=== PATIENT | male | born 1975 | race Caucasian/White ===

== ENCOUNTER 2021-05-16 19:43 | Emergency (ER) | payer OTHER ==
[~2021-05-16] VITALS: Ht 185.4 cm; Wt 74.8 kg
[2021-05-16] MEDS ORDERED: PERMETHRIN60 GM TOP (19:55)
[2021-05-16] MEDS ORDERED: MUPIROCIN1 GM TOP (19:55)
[2021-05-16 20:03] VITALS: BP 123/54
== END 2021-05-16 20:04 | disposition home or self-care (01) ==
LOC: M.ERS 19:43
DX: B86 Scabies (principal)